=== PATIENT | female | born 1960 | race Asian ===

== ENCOUNTER 2016-09-08 11:21 | Outpatient (CLI) | payer BC | END 2016-09-08 17:51 | disposition home or self-care (01) | LOC: SRD 11:21 | PROVIDERS: ATTEND Family Medicine | DX: S49.91XA Unspecified injury of right shoulder and upper arm, initial encounter (principal); S49.92XA Unspecified injury of left shoulder and upper arm, initial encounter; X58.XXXA Exposure to other specified factors, initial encounter; Y93.89 Activity, other specified; Y92.89 Other specified places as the place of occurrence of the external cause; Y99.8 Other external cause status | CPT/HCPCS: 72072-TC; 73030 ==